=== PATIENT | male | born 1980 | race Caucasian/White ===

== ENCOUNTER 2024-10-15 09:48 | Emergency (ER) | payer BC, SELFPAY ==
[2024-10-15 09:54] VITALS: BP 125/79; PULSE 63; TEMP 36.3; O2SAT 99; BMI 29.5
[2024-10-15 11:08] LABS: Basophils % 0.3 %; Eosinophils # 0.1 10^3/uL (0.0-0.8); Eosinophils % 0.8 %; Hematocrit 45.9 % (37-53); Lymphocytes # 1.1 10^3/uL (0.8-4.8); Lymphocytes % 9.2 %; Mean Corpuscular HGB Conc 33.6 g/dL (30-55); Mean Corpuscular Hemoglobin 31.4 pg (27-33); Mean Corpuscular Volume 93.7 fl (82-101); Mean Platelet Volume 11.1 fL (7.4-10.4); Monocytes # 0.6 10^3/uL (0.2-0.9); Monocytes % 5.1 %; Nucleated Red Blood Cells % 0 %; Platelet Count 251 10^3/cmm (157-399); Red Cell Distribution Width 13.2 % (12.1-15.1); White Blood Count 11.78 10^3/uL (3.29-11.43)
[2024-10-15 11:20] LABS: Slide Review Slide Review Perform
[2024-10-15 11:22] LABS: Alanine Aminotransferase 50 U/L (0-41); Albumin Level 4.5 g/dL (3.5-5.2); Alkaline Phosphatase 105 U/L (40-130); Anion Gap 14.6 (5-19); Aspartate Amino Transferase 23 U/L (0-40); Blood Urea Nitrogen 11 mg/dL (6-20); Calcium 9.1 mg/dL (8.5-10.5); Carbon Dioxide 25 mmol/L (22-29); Chloride 107 mmol/L (98-107); Creatinine Clr Calc Pharmacy 133.4844; Globulin 2.9 g/dL (1.3-4.6); Glomerular Filtration Rate 91.3 mL/min (90-130); Glucose 109 mg/dL (65-115); Lipase 23 U/L (13-60); Osmolality Calculated 296 mOsm/kg (285-295); Potassium 3.6 mmol/L (3.5-5.1); Sodium 143 mmol/L (136-145); Total Bilirubin 0.7 mg/dL (0.15-1.2); Total Protein 7.4 g/dL (6.6-8.7)
--- NOTE | 2024-10-15 12:25 | CT_ITS ---
WS: [id number] CT ABDOMEN PELVIS TECHNIQUE: Noncontrast CT of the abdomen and pelvis with coronal and sagittal reformatted images. CLINICAL INFORMATION: flank pain COMPARISON: None. DLP: 824.[address] scans at [facility] use at least one of these dose optimization techniques: automated exposure control; mA and/or kV adjustment per patient size (includes targeted exams where dose is matched to clinical indication); or iterative reconstruction. FINDINGS: 4 mm obstructing calculus RIGHT proximal ureter with mild RIGHT pelvicaliectasis and ureterectasis. Mild induration about the RIGHT kidney. Adrenal glands are normal. Lung bases are well aerated. Slight subpleural nodularity in the lung bases. Noncalcified nodule RIGHT lower lobe along the diaphragm measuring 4.0mm Normal noncontrast liver and spleen. Small splenule. Normal GE junction. Air- fluid level in the stomach. Fatty atrophy of the pancreas. Normal caliber abdominal aorta. Small fat-containing umbilical hernia. Sigmoid colon is decompressed. Enlarged prostate for a patient this age measuring 4.1 x 5.2 cm. Recommend correlation PSA. CT/CT kidney stone [id number] IMPRESSION: 1. 4 mm obstructing calculus RIGHT proximal ureter with mild RIGHT pelvicaliec tasis and ureterectasis. Mild induration about the RIGHT kidney. RIGHT distal u reter is decompressed. 2. No other acute findings.
--- NOTE | 2024-10-15 12:31 | W.ED.ABDPA2 ---
HPI - Abdominal Pain General: Chief Complaint: Abdominal Pain Stated Complaint: abd pain Time Seen by Provider: 10/15/24 11:10 Source: patient Mode of arrival: ambulatory Limitations: no limitations History of Present Illness: 44-year-old male who states that he woke up this morning he states he drank a Mountain Dew and started having sudden onset of severe right-sided flank pain states that it radiated to his testicle he also had 1 episode of vomiting. He states since then his pain has lessened he states the pain is currently 3 out of 10. No history of kidney stones he states he has had some gallbladder issues in the past but denies eating breakfast this morning. Associated Symptoms: Reports nausea and vomiting; Denies chills, diarrhea and fever(s) Related Data Previous Rx's ?Medication ?Instructions ?Recorded cephalexin 500 mg capsule 500 mg PO TID 7 days #21 caps 10/15/24 hydrocodone 5 mg-acetaminophen 325 1 tab PO Q6H PRN pain #14 tabs 10/15/24 mg tablet ondansetron 4 mg disintegrating 4 mg PO Q6H PRN nausea and 10/15/24 tablet vomiting #14 tabs Allergies Allergy/AdvReac Type Severity Reaction Status Date / Time Penicillins Allergy Unknown Verified 10/15/24 09:59 Review of Systems Const: Denies: fever(s), chills, body aches or change in appetite ENMT: Denies: throat pain or dental pain Card: Denies: chest pain Resp: Denies: dyspnea GI: Reports: abdominal pain, nausea and vomiting; Denies: diarrhea : Reports: flank pain Musc: Denies: neck pain or back pain Skin/Breast: Denies: rash Neuro: Denies: headache(s) Physical Exam Const: COMMON NORMALS: no acute distress, patient oriented x3 and healthy appearing HENMT: COMMON NORMALS: normocephalic and atraumatic HEAD & SCALP: normocephalic and atraumatic Neck/C-Spine: COMMON NORMALS: full ROM and supple Chest: COMMONS NORMALS: normal inspection of the chest Resp: COMMON NORMALS: normal respiratory effort Cardio: COMMON NORMALS: regular rate RATE: regular rate GI: COMMON NORMALS: Normal to inspection, nondistended, normoactive bowel sounds present, Soft to palpation, non-tender and no masses PALPATION: Yes Soft to palpation Extremity: COMMON NORMALS: normal to inspection and full ROM Neuro: COMMON NORMALS: patient oriented x3, moves all extremities and no focal motor deficits Psych: COMMON NORMALS: mental status grossly normal, Normal thought process present and cooperative THOUGHT PROCESS: Normal thought process present Skin: COMMON NORMALS: no rashes or lesions noted and no wounds GENERAL SKIN EXAM: no rashes or lesions noted Course Vital Signs: Vital signs: Vital Signs Temperature 97.4 F L 10/15/24 09:54 Pulse Rate 85 10/15/24 13:27 Blood Pressure 135/72 10/15/24 13:27 Pulse Oximetry 93 10/15/24 13:27 Oxygen Delivery Me thod Room Air 10/15/24 13:27 MDM - Abdominal Pain Medical Decision Making Patient presents here with flank pain he does have a kidney stone no signs of infection he is afebrile white count is normal we will DC him with a strainer pain meds he is follow-up with urology return if worsening. Medical Records I reviewed the patient's medical records. Lab Data I reviewed the patient's lab results. 10/15/24 10:44 10/15/24 10:44 Labs/Radiology: Radiology Impressions Abdomen/Pelvis CT 10/15/24 12:25 IMPRESSION: 1. 4 mm obstructing calculus RIGHT proximal ureter with mild RIGHT pelvicaliectasis and ureterectasis. Mild induration about the RIGHT kidney. RIGHT distal ureter is decompressed. 2. No other acute findings. Laboratory Results WBC 11.78 10^3/uL (3.29-11.43) H 10/15/24 10:44 RBC 4.90 10^6/uL (3.85-5.65) 10/15/24 10:44 Hgb 15.40 g/dL (11.27-16.99) 10/15/24 10:44 Hct 45.9 % (37-53) 10/15/24 10:44 MCV 93.7 fl (82-101) 10/15/24 10:44 MCH 31.4 pg (27-33) 10/15/24 10:44 MCHC 33.6 g/dL (30-55) 10/15/24 10:44 RDW 13.2 % (12.1-15.1) 10/15/24 10:44 Plt Count 251 10^3/cmm (157-399) 10/15/24 10:44 MPV 11.1 fL (7.4-10.4) H 10/15/24 10:44 Neut % (Auto) 84.0 % 10/15/24 10:44 Lymph % (Auto) 9.2 % 10/15/24 10:44 [place] % (Auto) 5.1 % 10/15/24 10:44 Eos % (Auto) 0.8 % 10/15/24 10:44 Baso % (Auto) 0.3 % 10/15/24 10:44 Neut # (Auto) 9.90 10^3/uL (1.8-7.7) H 10/15/24 10:44 Lymph # (Auto) 1.1 10^3/uL (0.8-4.8) 10/15/24 10:44 [place] # (Auto) 0.6 10^3/uL (0.2-0.9) 10/15/24 10:44 Eos # (Auto) 0.1 10^3/uL (0.0-0.8) 10/15/24 10:44 Baso # (Auto) 0.0 10^3/uL (0.0-0.1) 10/15/24 10:44 Nucleated RBC % (auto) 0 % 10/15/24 10:44 Nucleated RBCs # 0.0 /100WBC 10/15/24 10:44 Sodium 143 mmol/L (136-145) 10/15/24 10:44 Potassium 3.6 mmol/L (3.5-5.1) 10/15/24 10:44 Chloride 107 mmol/L (98-107) 10/15/24 10:44 Carbon Dioxide 25 mmol/L (22-29) 10/15/24 10:44 Anion Gap 14.6 (5-19) 10/15/24 10:44 BUN 11 mg/dL (6-20) 10/15/24 10:44 Creatinine 0.9 mg/dL (0.7-1.2) 10/15/24 10:44 GFR Calculation 91.3 mL/min (90-130) 10/15/24 10:44 Glucose 109 mg/dL (65-115) 10/15/24 10:44 Calculated Osmolality 296 mOsm/kg (285-295) H 10/15/24 10:44 Calcium 9.1 mg/dL (8.5-10.5) 10/15/24 10:44 Total Bilirubin 0.7 mg/dL (0.15-1.2) 10/15/24 10:44 AST 23 U/L (0-40) 10/15/24 10:44 ALT 50 U/L (0-41) H 10/15/24 10:44 Alkaline Phosphatase 105 U/L (40-130) 10/15/24 10:44 Total Protein 7.4 g/dL (6.6-8.7) 10/15/24 10:44 Albumin 4.5 g/dL (3.5-5.2) 10/15/24 10:44 Globulin 2.9 g/dL (1.3-4.6) 10/15/24 10:44 Lipase 23 U/L (13-60) 10/15/24 10:44 Urine Color Other (Yellow) A 10/15/24 12:30 Urine Appearance Cloudy (CLEAR) A 10/15/24 12:30 Urine pH TNP 10/15/24 12:30 Ur Specific [place] TNP 10/15/24 12:30 Urine Protein TNP 10/15/24 12:30 Urine Glucose (UA) TNP 10/15/24 12:30 Urine Ketones TNP 10/15/24 12:30 Urine Blood TNP 10/15/24 12:30 Urine Nitrate TNP 10/15/24 12:30 Urine Bilirubin TNP 10/15/24 12:30 Urine Urobilinogen TNP 10/15/24 12:30 Ur Leukocyte Esterase TNP 10/15/24 12:30 Urine RBC Too numerous to cnt /hpf (0-2) H 10/15/24 12:30 Urine WBC 11-20 /hpf (0-5) H 10/15/24 12:30 Amorphous Sediment Not Reportable 10/15/24 12:30 Urine Bacteria 2+ /hpf (NONE) H 10/15/24 12:30 All radiology interpretation(s) finalized by discharge Discharge Plan Discharge Patient Disposition: Home Clinical Impression: Kidney stone Condition: Stable Prescriptions: New hydrocodone-acetaminophen 5-325 mg tablet 1 tab PO Q6H PRN (Reason: pain) Qty: 14 0RF cephalexin 500 mg capsule 500 mg PO TID 7 Days Qty: 21 0RF ondansetron 4 mg tablet,disintegrating 4 mg PO Q6H PRN (Reason: nausea and vomiting) Qty: 14 0RF Discharge Orders: Discharge ED (Routine); Ordered 10/15/24 Ordered By: Jaron Sen Referrals: Cody Higgins MD [Primary Care Provider, [facility]] Discharge Diet: Advance as tolerated Discharge Activity: Resume usual activity Patient Instructions: Kidney Stones (ED), Opioid Safety Print Language: Georgian Coding Level of Care Code ED [employer] Manager for Rhett Bridges
[2024-10-15 13:15] LABS: Urine Color Other (Yellow)
[2024-10-15 13:16] LABS: Add Urine Microscopic? YES; UA Manual Slide Review YES; Urine Appearance Cloudy (CLEAR)
[2024-10-15 13:21] LABS: RBC Urine TOO NUMEROUS TO CNT /hpf (0-2)
[2024-10-15 13:22] LABS: Add Urine Culture? Yes; Bacteria Urine 2+ /hpf
[2024-10-15] MEDS: morphine 4 mg/mL SDV 1 mL IVP (13:22)
[2024-10-15] MEDS: ondansetron 2 mg/ML SDV 2 mL 4 MG IVP (13:22)
[2024-10-15 13:27] VITALS: BP 135/72; PULSE 85; O2SAT 93
[2024-10-15 15:51] VITALS: BP 141/85; PULSE 97; O2SAT 94
--- NOTE | 2024-10-18 11:54 | DCPLANNER ---
Urology referral sent to [facility]
== END 2024-10-15 15:54 | disposition home or self-care (01) ==
PROVIDERS: Emergency Provider Emergency Medicine; PCP Family Medicine
DX: N20.0 Calculus of kidney (principal)
CPT/HCPCS: 36415; 74176; 80053; 81001; 83690; 85025; 87086; 96374; 96375; 99285; J2270; J2405